=== PATIENT | female | born 1975 | race Two or more races ===

== ENCOUNTER 2019-09-03 06:00 | Outpatient (CLI) | payer OTHER | END 2019-09-03 06:05 | disposition home or self-care (01) | LOC: LAB 06:00 | DX: C20 Malignant neoplasm of rectum (principal); R59.0 Localized enlarged lymph nodes; K59.09 Other constipation; C21.0 Malignant neoplasm of anus, unspecified ==

== ENCOUNTER 2020-05-04 10:43 | Day surgery (SDC) | payer OTHER | END 2020-05-04 15:50 | disposition home or self-care (01) | LOC: AMB-ENDOS 10:43 → ADM 13:45 → AMB-ENDOS 13:45 | PROVIDERS: ATTEND Surgery | DX: K62.89 Other specified diseases of anus and rectum (principal); Z20.828 Contact with and (suspected) exposure to other viral communicable diseases ==

== ENCOUNTER 2020-12-07 07:10 | Day surgery (SDC) | payer OTHER | END 2020-12-07 11:35 | disposition home or self-care (01) | LOC: AMB-ENDOS 07:10 | PROVIDERS: ATTEND Surgery | DX: D12.8 Benign neoplasm of rectum (principal); Z20.822 Contact with and (suspected) exposure to COVID-19 ==